=== PATIENT | male | born 1940 | race Caucasian/White ===

== ENCOUNTER 2020-09-03 13:04 | Emergency (ER) | payer MEDICARE, OTHER ==
[~2020-09-03] VITALS: Ht 182.9 cm; Wt 90.7 kg
[2020-09-03] MEDS ORDERED: ASPirin 81 mg TAB PO ONE (13:15)
[2020-09-03 13:36] LABS: Basophils # (auto) 0.1 10 ^3/uL (0-0.2); Basophils % (auto) 0.9 % (0.0-2.0); Eosinophils # (auto) 0.2 10 ^3/uL (0-0.8); Eosinophils % (auto) 3.5 % (0.0-7.0); Hematocrit 35.8 % (41.0-53.0); Hemoglobin 12.3 g/dL (13.5-17.5); Lymphocytes # (auto) 2.4 10 ^3/uL (0.4-5.4); Mean Corpuscular Hemoglobin 29.9 pg (28.0-32.0); Mean Corpuscular Hgb Conc. 34.3 g/dL (32.0-36.0); Mean Corpuscular Volume 87.3 fL (80.0-100.0); Monocytes # (auto) 0.8 10 ^3/uL (0-1.3); Monocytes % (auto) 11.9 % (0.0-12.0); Neutrophils # (auto) 3.1 10 ^3/uL (1.6-8.6); Neutrophils % (auto) 46.7 % (37.0-80.0); Red Blood Cells 4.11 10^6/uL (4.5-5.90); Red Cell Distribution Width 14.1 % (11.8-14.3); White Blood Cell 6.5 10^3/uL (4.4-10.8)
[2020-09-03 14:04] LABS: Albumin 3.4 g/dL (3.4-5.0); Anion Gap 7 (5-15); Blood Urea Nitrogen 38 mg/dL (7-18); Calcium 8.6 mg/dL (8.5-10.1); Carbon Dioxide 23 mmol/L (21-32); Chloride 108 mmol/L (98-107); Glucose 94 mg/dL (74-106); Potassium 4.3 mmol/L (3.5-5.1); Sodium 138 mmol/L (136-145)
[2020-09-03 14:09] LABS: Alanine Aminotransferase 30 U/L (16-61); Alkaline Phosphatase 97 U/L (45-117); Aspartate Aminotransferase 25 U/L (15-37); BUN/Creatinine Ratio 23.9; Bilirubin, Total 0.4 mg/dL (0.2-1.0); GFR African American 54 mL/min; GFR Non-African American 45 mL/min; Total Protein 7.3 g/dL (6.4-8.2)
[2020-09-03 15:47] VITALS: BP 132/55
== END 2020-09-03 16:07 | disposition left against medical advice (07) ==
LOC: EDBD 13:04 → ER 13:04
DX: R07.89 Other chest pain (principal); G30.9 Alzheimer's disease, unspecified; J44.9 Chronic obstructive pulmonary disease, unspecified
CPT/HCPCS: 36415; 71045; 80053; 84484; 85025; 93005

== ENCOUNTER 2024-10-31 16:31 | Emergency (ER) | payer OTHER ==
--- NOTE | 2024-10-31 16:55 | ED.PDOC ---
History of Present Illness HPI Comments 84 y.o male presents to the ED via EMS for an evaluation of generalized weakness associated with increased confusion per family at home. EMS reports patient was diagnosed with a UTI 6 days ago, was placed on Cipro but family states patient's mental state has changed. Family stated patient had visual hallucinations of his who is . Patient today also slipped out of his bed while family assisted him out, sliding to the floor with no trauma or head injuries. Patient upon ED arrival is alert and orientated x 4. Patient has hx of chronic left leg pain with hip fracture and needs behavioral health assistant from family to ambulate. Vitals Temp: 98.2 F HR: 73 BP: 120/73 RR: 20 SPO2: 94% RA Past Medical history: HLD and chronic left leg pain Past Surgical history: Left hip replacement Social History: Denies smoking, ETOH, and drug use. Allergies: All statins and penicillins NU: HPI: Poor Historian. On Cipro since past Thursday for UTI. Generalized weakness and some hallucinations pertaining to his per family. Brought in by EMS. Vital signs are stable. Minimal slip and fall from a seated position in the bed without any associated pain or trauma. Not on blood thinners. Past Medical History: Past Surgical History: REVIEW OF SYSTEMS: CONSTITUTIONAL: Denies acute: fever, diaphoresis, chills, HEAD: Denies acute: headache, photophobia Eyes: Denies acute: Double vision, vision loss, eye pain, eye discharge. EARS: Denies acute: tinnitus, hearing loss, ear discharge, ear pain, THROAT: Denies acute: sore throat, swelling, difficulty swallowing , pain with swallowing, change in voice. NECK: Denies acute: neck pain, neck swelling, stiff neck. HEART: Denies acute : chest pain, palpitations, LUNGS: Denies acute: SOB, wheezing, cough, hemoptysis ABDOMEN: Denies acute: abdominal pain, Nausea, Vomiting, diarrhea, melena , hematemesis, hematochezia SKIN: Denies acute: rash, redness, lesions, itchiness. EXTREMITIES: Denies acute: calf pain, numbness, tingling, weakness, denies pain in extremity. Denies acute: Low back pain. Neuro: Denies acute: focal neurological deficit, motor or sensory focal neurological deficit, tremors, seizure like activity, confusion, dizziness, change in mental status, loss of bowel or bladder function, cauda equina like symptoms. : Denies acute: dysuria, hematuria, flank pain, increase in urinary frequency. PSYCH: Denies acute: , suicidal ideation, homicidal ideation. PHYSICAL EXAM: General: ---mild-----acute distress, awake and alert. Head: normocephalic, atraumatic. Neck: supple, trachea is midline, no swelling. Throat: Normal phonation. Eyes:, no erythema, no purulent discharge, no proptosis, no icterus. Heart: regular rate, regular rhythm, no significant murmur appreciated. Lungs: no apparent respiratory distress, Able to speak in full sentences. No wheezing, no rhonchi, no crackles. No stridors Clear to auscultation bilaterally. Abdomen: non tender to palpation, non distended, soft, no guarding, no rebound, + bowel sounds. Obese Neuro: Awake, Alert, oriented to name, self, situation, follows commands GCS=15. Speech is normal. Skin: no petechia, no purpura, no cyanosis, non-pale, not jaundice. Lower extremities: --no - Pitting edema no deformity, no focal swelling, no calf TTP. Makes eye contact. moves all four extremities. Face: no apparent facial droop. ED COURSE: DISCLAIMER: This medical document was created using an electronic medical record system with voice recognition software and computerized dictation system. Although this document has been carefully reviewed, there might still be some phonetic and typographical errors. Occasional wrong-word or "sound-alike" substitutions may have occurred due to the inherent limitations of voice recognition software. These areas are purely typographical due to imperfections of the software programs and do not reflect any compromise in the patient's medical care. Please read the chart carefully and recognize, using context, where these substitutions have occurred. Time Seen by MD: 16:38 Primary Care Provider: NONE Reviewed Notes: Manager Gyn Notes, Allergies Allergies: Coded Allergies: Penicillins (Verified Allergy, Unknown, 09/03/20) Statins (Verified Allergy, Unknown, 10/31/24) Information Source: Patient, Emergency Med Personnel Mode of Arrival: EMS Severity: Moderate Past Medical History PAST MEDICAL HISTORY: Alzheimer, Arthritis Surgical History: Denies all surgeries Family History Family History: Reviewed,noncontributory to illness Social History Smoker: Non-Smoker, Quit Greater Than 1 Year Alcohol: Denies ETOH Use Drugs: Denies Drug Use Lives In: Home Was a procedure done? Was a procedure done?: No Differential Dx Considerations may include: Sepsis, UTI, dehydration, electrolyte imbalance X-Ray, Labs, Meds, VS Vital Signs Date Time Temp Pulse Resp B/P (MAP) Pulse Ox O2 Delivery O2 Flow Rate FiO2 10/31/24 19:40 97.7 71 16 124/64 (84) 95 97.7 10/31/24 19:30 Room Air* 0 21 10/31/24 16:40 98.2 73 20 120/73 94 98.2 Lab Test 10/31/24 21:14 10/31/24 18:53 10/31/24 18:49 10/31/24 17:39 Range/Units Troponin I High Sensitivity 11 11 10 </=54 ng/L Urine Color Yellow Yellow Urine Clarity Turbid H Clear Urine pH 5.5 5.0-9.0 Urine Specific [place] 1.022 1.001-1.035 Urine Protein Trace H Negative Urine Ketones Trace Negative Urine Blood Negative Negative /uL Urine Nitrite Negative Negative Urine Bilirubin Negative Negative Urine Urobilinogen 2 H Negative mg/dL Urine Leukocyte Esterase 3+ Negative /uL Urine RBC <1 0 - 3 /hpf Urine Microscopic WBC 46 H 0-3 /HPF Urine Squamous Epithelial Cells Mod <5 /hpf Urine Bacteria Few H None Seen /hpf Urine Hyaline Casts Few 0 - 2 /lpf Urine Mucus Few None Seen Urine Glucose Normal Normal mg/dL White Blood Count 6.6 4.4-10.8 10^3/uL Red Blood Count 4.25 L 4.5-5.90 10^6/uL Hemoglobin 12.6 L 13.5-17.5 g/dL Hematocrit 37.9 L 41.0-53.0 % Mean Corpuscular Volume 89.2 80.0-100.0 fL Mean Corpuscular Hemoglobin 29.7 28.0-32.0 pg Mean Corpuscular Hemoglobin Concent 33.3 32.0-36.0 g/dL Red Cell Distribution Width 14.7 H 11.8-14.3 % Platelet Count 273 140-450 10^3/uL Mean Platelet Volume 8.3 6.9-10.8 fL Neutrophils (%) (Auto) 65.9 37.0-80.0 % Lymphocytes (%) (Auto) 21.0 10.0-50.0 % Monocytes (%) (Auto) 8.8 0.0-12.0 % Eosinophils (%) (Auto) 3.7 0.0-7.0 % Basophils (%) (Auto) 0.6 0.0-2.0 % Neutrophils # (Auto) 4.4 1.6-8.6 10 ^3/uL Lymphocytes # (Auto) 1.4 0.4-5.4 10 ^3/uL Monocytes # (Auto) 0.6 0-1.3 10 ^3/uL Eosinophils # (Auto) 0.2 0-0.8 10 ^3/uL Basophils # (Auto) 0 0-0.2 10 ^3/uL Nucleated Red Blood Cells 0.0 % Sodium Level 142 136-145 mmol/L Potassium Level 4.6 3.5-5.1 mmol/L Chloride Level 107 98-107 mmol/L Carbon Dioxide Level 26 20-31 mmol/L Anion Gap 9 5-15 Blood Urea Nitrogen 48 H 9-23 mg/dL Creatinine 2.96 H 0.700-1.30 mg/dL Glomerular Filtration Rate Calc 20 >90 mL/min BUN/Creatinine Ratio 16.2 10.0-20.0 Serum Glucose 90 74-106 mg/dL Lactic Acid Level 1.0 0.4-2.0 mmol/L Calcium Level 8.9 8.7-10.4 mg/dL Total Bilirubin 0.8 0.2-1.0 mg/dL Aspartate Amino Transferase (AST) 19 13-40 U/L Alanine Aminotransferase (ALT) 15 7-40 U/L Alkaline Phosphatase 93 46-116 U/L B-Type Natriuretic Peptide 176.74 0-100 pg/mL Total Protein 6.0 5.7-8.2 g/dL Albumin 3.9 3.2-4.8 g/dL Current Medications Medications (Trade) Dose Ordered Sig/Rick Route Start Time Stop Time Status Last Admin Sodium Chloride 1,000 ml @ 1,000 mls/hr Q1H ONCE IV 10/31/24 17:00 10/31/24 17:59 DC 10/31/24 20:04 Ceftriaxone Sodium 50 ml @ 100 mls/hr ONCE ONCE IV 10/31/24 17:15 10/31/24 17:44 DC 10/31/24 20:[address] [address] Ph: [phone] DIAGNOSTIC IMAGING Diagnostic Imaging Report : [id number] Signed PATIENT: CARLTON JUDGE ACCT: [id number] UNIT: [id number] : 1940 LOC: ER ROOM / BED: / AGE / SEX: 84 / M ADM STATUS: REG ER SERVICE ORDERING PHYSICIAN: HAFSA SOSA DO PROCEDURE(s): CXRP - CHEST PORTABLE REASON: gen robert ORDER NUMBER(s): [id number], ACCESSION NUMBER(s): [id number] AP portable chest CLINICAL INDICATION: gen robert Comparison: 09/03/2020 FINDINGS: Heart size is borderline. The aorta is tortuous. No infiltrates or effusions IMPRESSION: 1. No acute cardiopulmonary pathology ATED BY: SHAWNA VELA MD DICTATED DATE/TIME: 10/31/241733 SIGNED BY: SHAWNA VELA MD SIGNED DATE/TIME: 10/31/241733 CC: Time of 1ST Reevaluation: 16:55 Reevaluation 1ST: Unchanged Time of 2ND Reevaluation: 21:54 (The case was discussed with the admitting team (HPI, physical exam, labs and diagnostic tests that were available at the time of disposition, ED course, treatment plan) on the phone. They agreed to admit the patient to their service and arrange for transfer and assume care of this patient from this point forward. --- Kimberly at [facility]) Reevaluation 2ND: Improved Patient Education/Counseling: Diagnosis, Treatment Family Education/Counseling: No Family Present SEPSIS Sepsis Screen Physician Orders Svp [employer] (10/31/24 ) Chest Portable (10/31/24 16:46) Electrocardigram (10/31/24 16:46) Vital Signs Date Time Temp Pulse Resp B/P (MAP) Pulse Ox O2 Delivery O2 Flow Rate FiO2 10/31/24 19:40 97.7 71 16 124/64 (84) 95 97.7 10/31/24 19:30 Room Air* 0 21 10/31/24 16:40 98.2 73 20 120/73 94 98.2 Laboratory Tests Test 10/31/24 17:39 Lactic Acid Level 1.0 mmol/L (0.4-2.0) White Blood Count 6.6 10^3/uL (4.4-10.8) Medications Medications Dose Ordered Sig/Rick Route Start Time Stop Time Status Last Admin Dose Admin Ceftriaxone Sodium 50 ml @ 100 mls/hr ONCE ONCE IV 10/31/24 17:15 10/31/24 17:44 DC 10/31/24 20:04 Sodium Chloride 1,000 ml @ 1,000 mls/hr Q1H ONCE IV 10/31/24 17:00 10/31/24 17:59 DC 10/31/24 20:04 Departure 1 Departure Time of Disposition: 17:03 Impression: Primary Impression: Sepsis secondary to UTI Additional Impressions: Altered mental status Hallucination Generalized weakness Acute renal insufficiency Disposition: ADMITTED INPATIENT Condition: Guarded Discharged With: Self Critical Care Note Critical Care Time?: No I personally scribed for HAFSA SOSA DO ([email or web address]) on 10/31/24 at 16:55. Electronically submitted by Erica Whalen ([facility]). I personally scribed for HAFSA SOSA DO ([email or web address]) on 10/31/24 at 18:27. Electronically submitted by Erica Whalen ([facility]). HAFSA SOSA DO Oct 31, 2024 16:55
--- NOTE | 2024-10-31 17:37 | DVH ---
AP portable chest CLINICAL INDICATION: gen weak Comparison: 09/03/2020 FINDINGS: Heart size is borderline. The aorta is tortuous. No infiltrates or effusions IMPRESSION: 1. No acute cardiopulmonary pathology
[2024-10-31 18:07] LABS: Hematocrit 37.9 % (41.0-53.0); Hemoglobin 12.6 g/dL (13.5-17.5); Mean Corpuscular Hemoglobin 29.7 pg (28.0-32.0); Mean Corpuscular Volume 89.2 fL (80.0-100.0); Nucleated Red Blood Cells % 0.0 %
[2024-10-31 18:25] LABS: Alanine Aminotransferase 15 U/L (7-40); Albumin 3.9 g/dL (3.2-4.8); Alkaline Phosphatase 93 U/L (46-116); Anion Gap 9 (5-15); BUN/Creatinine Ratio 16.2 (10.0-20.0); Calcium 8.9 mg/dL (8.7-10.4); Carbon Dioxide 26 mmol/L (20-31); Glucose 90 mg/dL (74-106); Potassium 4.6 mmol/L (3.5-5.1); Sodium 142 mmol/L (136-145); Total Protein 6.0 g/dL (5.7-8.2)
[2024-10-31 18:26] LABS: Bilirubin, Total 0.8 mg/dL (0.2-1.0); Blood Urea Nitrogen 48 mg/dL (9-23); Chloride 107 mmol/L (98-107)
[2024-10-31] MEDS: cefTRIAXone 1GM/50ML D5W 50 ML IV ONE (20:04)
[2024-10-31] MEDS: SODIUM CHLORIDE 0.9% 1,000 ML IV ONE (20:04)
[2024-10-31 20:18] LABS: Urine Protein, UAD TRACE (Negative)
[2024-10-31] MEDS ORDERED: DEXT10TA PO (22:13)
[2024-10-31] MEDS ORDERED: CITA-73 PO (22:14)
[2024-10-31] MEDS ORDERED: IMIP25TA12 PO (22:14)
[2024-10-31 23:08] VITALS: BP 131/72; PULSE 72; RESP 19; TEMP 98; O2SAT 98
== END 2024-10-31 21:56 | disposition short-term general hospital (02) ==
LOC: EDBD 16:31 → ER 16:31
DX: A41.9 Sepsis, unspecified organism (principal); N39.0 Urinary tract infection, site not specified; N28.9 Disorder of kidney and ureter, unspecified; R41.82 Altered mental status, unspecified; R44.3 Hallucinations, unspecified; R53.1 Weakness; M19.90 Unspecified osteoarthritis, unspecified site; E78.5 Hyperlipidemia, unspecified; G30.9 Alzheimer's disease, unspecified; Z87.891 Personal history of nicotine dependence; Z88.0 Allergy status to penicillin; Z87.440 Personal history of urinary (tract) infections; Z88.8 Allergy status to other drugs, medicaments and biological substances; Z96.642 Presence of left artificial hip joint
CPT/HCPCS: 36415; 71045; 80053; 81001; 83605; 83880; 84484; 85025; 96365; 99285; J0696; J7030